=== PATIENT | female | born 1990 | race American Indian/Alaskan Native ===

== ENCOUNTER 2019-11-14 01:10 | Inpatient (IN) | payer MEDICAID ==
--- NOTE | 2019-11-14 01:51 | History and Physical Report ---
History of Present Illness Date of examination: 11/14/19 Date of admission: 11/14/19 01:10 Chief complaint: contractions History of present illness: 29y/o @ 37+6 weeks presents in active labor with advanced cervical dilatation of 10 cm. No records are available for review. Past History Past Medical History: no pertinent history Past Surgical History: no surgical history Social history: single - Obstetrical History Expected Date of Delivery: 11/29/19 Actual Gestation: 37 Week(s) 6 Day(s) : 3 Para: 2 Hx # Term Pregnancies: 2 Number of Pregnancies: 0 Spontaneous Abortions: 0 Induced : 0 Number of Living Children: 2 Medications and Allergies Allergies Allergy/AdvReac Type Severity Reaction Status Date / Time No Known Allergies Allergy Unverified 11/14/19 01:45 Home Medications Medication Instructions Recorded Confirmed Last Taken Type Pnv,Calcium 72/Iron,Carb/Folic 1 tab PO QDAY 11/14/19 11/14/19 11/13/19 History [ Plus Iron Tablet] Review of Systems Genitourinary: pelvic pain, contractions - Vital Signs Vital signs: Vital Signs Temp Resp BP 97.8 F 18 108/69 11/14/19 01:43 11/14/19 01:43 11/14/19 01:43 Temp Pulse Resp BP Pulse Ox 97.8 F 18 108/69 11/14/19 01:43 11/14/19 01:43 11/14/19 01:43 - Physical Exam Breasts: Positive: deferred Cardiovascular: Regular rate Lungs: Positive: Clear to auscultation Results All other labs normal. Assessment and Plan - Patient Problems (1) Active labor at term Current Visit: Yes Status: Acute Plan to address problem: Admit to labor and delivery
[2019-11-14] MEDS ORDERED: ACETAMINOPHEN 325 MG TAB PO PRN (01:53)
[2019-11-14] MEDS ORDERED: WITCH HAZEL/ GLYCERIN PAD TP PRN (01:53)
[2019-11-14] MEDS ORDERED: HYDROcodone/ACETAMINOPHEN 5-325 MG TAB PO PRN (01:53)
[2019-11-14] MEDS ORDERED: PROMETHAZINE 25 MG TAB PO PRN (01:53)
[2019-11-14] MEDS ORDERED: MAGNESIUM HYDROXIDE (MOM) ORAL LIQD UDC PO PRN (01:53)
[2019-11-14] MEDS ORDERED: LANOLIN/ZINC/DIMETHICONE (LANSINOH) 7 GM TP PRN (01:53)
[2019-11-14] MEDS ORDERED: PROMETHAZINE 25 MG RECT SUPP PR PRN (01:53)
[2019-11-14] MEDS ORDERED: diphenhydrAMINE 25 MG CAP PO PRN (01:53)
[2019-11-14] MEDS ORDERED: ONDANSETRON 4 MG/2 ML INJ IV PRN (01:53)
--- NOTE | 2019-11-14 01:53 | Procedure Note ---
OB Delivery Note - Delivery Date of Delivery: 11/14/19 Surgeon: FARHAT SANTO Estimated blood loss: 100cc - Vaginal Delivery presentation: vertex Delivery position: OA Intrapartum events: precipitous labor- <3hr Delivery monitor: external FHT, external uterine Route of delivery: Delivery placenta: spontaneous Delivery cord: 3 umbilical vessels Episiotomy: none Delivery laceration: none Anesthesia: none Delivery comments: The patient presented to labor and delivery with advanced cervical dilatation. She had a precipitous delivery of a liveborn female with Apgars of 8 and 9 weight 5 lbs. 13 oz. The delivery was attended by the nursing staff. The physician delivered the placenta spontaneously intact with a three-vessel cord. No lacerations were noted. Estimated blood loss 100 mL. - Infant A at 1 minute: 8 at 5 minutes: 9 Gender: Female (weight 5 lbs. 13 oz.)
[2019-11-14] MEDS ORDERED: OXYTOCIN 20 UNIT/1000ML DRIP 20,000 MILLIUNITS/1,000 ML BAG IV ONE (03:04)
[2019-11-14] MEDS: IBUPROFEN 600 MG TAB PO SCH ×2 (12:00→18:00)
[2019-11-14 15:56] LABS: Hematocrit 30.1 % (30.3-42.9)
--- NOTE | 2019-11-15 08:44 | Progress Note ---
Assessment and Plan A/P PPD1 routine PP care Discharge tomorrow Subjective - Subjective Date of service: 11/15/19 Principal diagnosis: s/p Patient reports: appetite normal, voiding normally, pain well controlled, flatus, ambulating normally : doing well Objective - Vital Signs Latest vital signs: Vital Signs Temp Pulse Resp BP BP Pulse Ox 11/15/19 07:58 98.0 F 58 L 18 98/55 11/14/19 23:09 98.2 F 63 18 100/54 97 11/14/19 17:00 98.4 F 63 18 102/62 Intake and Output 11/14/19 11/15/19 11/15/19 23:59 07:59 15:59 Intake Total 320 480 Output Total 600 Balance -280 480 Intake: Oral 320 480 Output: Urine 600 Void 600 Other: Total, Intake Amount 320 480 Total, Output Amount 600 # Voids Void 1 1 - Exam Breasts: Present: normal Cardiovascular: Present: Regular rate, Normal S1 Lungs: Present: Clear to auscultation, Normal air movement Abdomen: Present: normal appearance, soft, normal bowel sounds. Absent: distention, tenderness, guarding Vulva: both: normal Uterus: Present: normal, firm, fundal height below umbilicus. Absent: bogginess, tenderness Extremities: Present: normal Deep Tendon Reflex Grade: Normal +2 Incision: Present: normal - Labs Labs: Abnormal lab results 11/14/19 Range/Units 14:36 Hgb 10.0 L (10.1-14.3) gm/dl Hct 30.1 L (30.3-42.9) %
--- NOTE | 2019-11-15 08:48 | Discharge Summary ---
Providers - Providers Date of Admission: 11/14/19 01:10 Date of discharge: 11/16/19 Attending physician: FARHAT SANTO Primary care physician: FARHAT SANTO Hospitalization Reason for admission: active labor Delivery: Episiotomy: none Laceration: none Incision: normal, dry, intact Other procedures: none complications: none Discharge diagnosis: IUP at term delivered baby: female Hospital course: routine PP care after of viable female Condition at discharge: Good Disposition: [id number] TO HOME OR SELFCARE Plan - Discharge Medications Prescriptions: Ferrous Sulfate [Feosol 325 MG tab] 325 mg PO BID #30 tablet Ibuprofen [Motrin] 600 mg PO Q8H PRN #30 tablet PRN Reason: Pain oxyCODONE /ACETAMINOPHEN [Percocet 5/325] 1 tab PO Q6HR PRN #20 tablet PRN Reason: Pain - Provider Discharge Summary Activity: routine, no sex for 6 weeks, no strenuous exercise Diet: routine Instructions: routine Additional instructions: [] Smoking cessation referral if applicable(refer to patient education folder for contact #) [] Refer to [facility] Booklet Call your doctor immediately for: * Fever > 100.5 * Heavy vaginal bleeding ( >1 pad per hour) * Severe persistent headache * Shortness of breath * Reddened, hot, painful area to leg or breast * Drainage or odor from incision. * Keep incision clean and dry at all times and follow doctor's instructions regarding bathing/showering - Follow up plan Follow up: FARHAT SANTO MD [Primary Care Provider] - 12/12/19
[2019-11-16] MEDS: IBUPROFEN 600 MG TAB PO SCH (12:57)
[2019-11-16 14:20] VITALS: BP 112/75
== END 2019-11-16 17:48 | disposition home or self-care (01) | DRG 775 ==
LOC: LD 01:10 → OB 05:37
PROVIDERS: ADMIT Obstetrics & Gynecology; ATTEND Obstetrics & Gynecology
PROC: 10E0XZZ Delivery of Products of Conception, External Approach (ICD-10-PCS; principal; 2019-11-14)
DX: O62.3 Precipitate labor (principal); Z3A.37 37 weeks gestation of pregnancy; Z37.0 Single live birth
CPT/HCPCS: 36415; 85014; 85018; 86592; 86850; 86900; 86901; G0378; J2590